=== PATIENT | female | born 1940 ===

== ENCOUNTER 2016-08-18 09:31 | Outpatient (CLI) | payer MEDICARE, OTHER ==
[2016-08-18 13:05] LABS: Cardiac Risk 4.1 (Less than 4.5)
== END 2016-08-18 09:32 ==
LOC: NAVSJIPCSP 09:31
PROVIDERS: ATTEND Internal Medicine
DX: E78.2 Mixed hyperlipidemia (principal)
CPT/HCPCS: 36415; 80061